=== PATIENT | male | born 1965 | race Caucasian/White ===

== ENCOUNTER → 2024-05-31 | Day surgery (SDC) | payer BC ==
[~2024-05-31] MED LIST: LACTATED RINGERS 1,000 ML IV SCH; LIDOCAINE 1% INJ 10MG/ML (20 ML MDV) ONE; PROPOFOL 10 MG/ML 20 ML VIAL IV ONE
[2024-05-31 10:18] VITALS: TEMP 99.3
[2024-05-31] MEDS: IV FLUID CONTINUATION 1,000 ML IV ONE ×2 (10:24→10:39)
--- NOTE | 2024-05-31 10:57 | P.PCN ---
Date of Procedure: 05/31/24 Procedure(s) Performed: BRIEF HISTORY: Patient is a 58-year-old pleasant white man scheduled for an elective colonoscopy as a part of screening for by history of colon polyps. PROCEDURE PERFORMED: Colonoscopy with biopsy. PREOPERATIVE DIAGNOSIS: Screening for history of colon polyps. IV sedation per Anesthesia. PROCEDURE: After informed consent was obtained, the patient, was brought into the endoscopy unit. IV sedation was administered by Anesthesia under continuous monitoring. Digital rectal examination was normal. Initially the Olympus CF-160 flexible video colonoscope was then inserted in the rectum, gradually advanced into the cecum without any difficulty. Careful examination was performed as the scope was gradually being withdrawn. Ileocecal valve and the appendiceal orifice were visualized and appeared normal. Prep was excellent. Mucosa of the cecum, ascending colon, appeared normal. The transverse colon is a 4 mm polyp that was removed by cold biopsy. Rest of the transverse colon, descending colon, sigmoid colon, and rectum appeared normal scattered left-sided diverticulosis seen.. Retroflexion was performed in the rectum and no lesions were seen. The patient tolerated the procedure well. IMPRESSION: 4 mm transverse colon polyp status post cold biopsy Scattered left-sided diverticulosis RECOMMENDATIONS: Findings of this examination were discussed with the patient as well as his family. He was advised to follow-up with the biopsy results. If the biopsy was adenoma he can have repeat colonoscopy in 5 years..
[2024-05-31 11:15] VITALS: BP 136/85; PULSE 93; RESP 16
== END ==
LOC: ORWHC2ENDO 09:54
PROVIDERS: ATTEND Internal Medicine Gastroenterology
DX: Z12.11 Encounter for screening for malignant neoplasm of colon (principal); Z86.0100 Personal history of colon polyps, unspecified; K63.5 Polyp of colon; K57.30 Diverticulosis of large intestine without perforation or abscess without bleeding
CPT/HCPCS: 45380; J2003; J2704; 88305